=== PATIENT | male | born 1980 | race Hispanic/Latino ===

== ENCOUNTER 2020-10-29 20:07 | Emergency (ER) | payer OTHER ==
[2020-10-29 20:47] LABS: HEMOGLOBIN 14.4 g/dl (14.0-18.0); IMMATURE GRANULOCYTES 0.2 % (0.0-5.0); MEAN CORPUSCULAR HGB 30.6 pG CALC (26.0-32.0); MEAN CORPUSCULAR HGB CONC 35.1 g/dL CAL (32.0-36.0); NEUT# 4.09 thou/uL (1.82-7.42); RED BLOOD COUNT 4.71 mill/uL (4.70-6.10); RED CELL DISTRI WIDTH 12.3 % (11.5-15.5)
[2020-10-29 20:58] LABS: ALBUMIN 4.2 g/dL (3.2-5.0); ALKALINE PHOSPHATASE 104 u/l (38-126); ANION GAP 16 (6-22 (CALC)); BILIRUBIN, TOTAL 0.3 mg/dL (0.0-1.4); BUN 16 mg/dL (9-20); BUN/CREATININE RATIO 18 (12-20 (CALC)); CARBON DIOXIDE 20 mmol/l (22-30); CHLORIDE 107 mmol/l (95-108); CPK 275 u/l (52-200); CREATININE 0.9 mg/dL (0.7-1.3); ETHYL ALCOHOL 155 mg/dl (0-30); GFR > 60 ML/MIN (>=60 (CALC)); GFR FOR AFR.AMER. > 60 ML/MIN (>=60 (CALC)); POTASSIUM 3.7 mmol/l (3.5-5.1); SGOT/AST 57 u/l (17-59); SODIUM 139 mmol/l (137-146); TOTAL PROTEIN 7.8 g/dL (6.3-8.2)
[2020-10-29 23:35] VITALS: BP 133/79
== END 2020-10-29 23:37 | disposition home or self-care (01) | DRG 605 ==
LOC: ED 20:07
PROVIDERS: Family Medicine
DX: S20.211A Contusion of right front wall of thorax, initial encounter (principal); F10.129 Alcohol abuse with intoxication, unspecified; V48.5XXA Car driver injured in noncollision transport accident in traffic accident, initial encounter
CPT/HCPCS: Q9967

== ENCOUNTER 2021-11-22 10:56 | Emergency (ER) | payer SELFPAY ==
[~2021-11-22] VITALS: Ht 165.1 cm; Wt 81.8 kg
[2021-11-22 11:06] VITALS: BP 160/99
[2021-11-22 11:15] VITALS: BP 141/94
[2021-11-22] MEDS ORDERED: BLEPH-1010 % OS (11:28)
[2021-11-22] MEDS ORDERED: MELOXICAM15 MG PO (11:29)
[2021-11-22] MEDS ORDERED: HYDROCO/APAP1 TA9 PO (11:29)
[2021-11-22 11:30] VITALS: BP 132/85
[2021-11-22 11:45] VITALS: BP 138/94
[2021-11-22 12:27] VITALS: BP 126/94
== END 2021-11-22 12:30 | disposition home or self-care (01) | DRG 125 ==
LOC: ED 10:56
PROC: 08C1XZZ Extirpation of Matter from Left Eye, External Approach (ICD-10-PCS; principal; 2021-11-22)
DX: T15.92XA Foreign body on external eye, part unspecified, left eye, initial encounter (principal); X58.XXXA Exposure to other specified factors, initial encounter; Y93.H9 Activity, other involving exterior property and land maintenance, building and construction; Y92.007 Garden or yard of unspecified non-institutional (private) residence as the place of occurrence of the external cause